=== PATIENT | male | born 1990 | race Hispanic/Latino ===

== ENCOUNTER 2017-09-28 00:43 | Emergency (ER) | payer BC, MEDICAID ==
[2017-09-28 00:43] VITALS: BMI 32.1
[2017-09-28 01:56] VITALS: RESP 18; TEMP 98.2
[2017-09-28] MEDS ORDERED: Sodium Chloride 0.9% 1,000 ML IV STA (02:00)
--- NOTE | 2017-09-28 02:07 | ED PDOC ---
Arrival/HPI - General Chief Complaint: Male Genitourinary Time Seen by Provider: 09/28/17 01:47 Historian: Patient - History of Present Illness Narrative History of Present Illness (Text): 09/28/17 02:06 A 27 year old male, who denies any past medical history, presents to the emergency department complaining of right flank pain and unable to urinate. Patient notes he feels like he has to pee, unable to urinate. Patient reports symptoms began about three hours ago. Reports he has been tolerating liquids. Denies having these symptoms in the past. Patient denies any other complaints at this time. Time/Duration: 1-3 hours Symptom Onset: Sudden Symptom Course: Unchanged Activities at Onset: Rest Context: Home Past Medical History - Provider Review Nursing Documentation Reviewed: Yes - Tetanus Immunization Tetanus Immunization: Unknown - Past Medical History Past Medical History: No Previous - Cardiac Hx Cardiac Disorders: No - HEENT Hx Deafness: Yes (partial) - Psychiatric Hx Substance Use: No - Suicidal Assessment Feels Threatened In Home Enviroment: No Family/Social History - Physician Review Nursing Documentation Reviewed: Yes Family/Social History: No Known Family HX Smoking Status: Current Some Days Smoker Hx Alcohol Use: No Hx Substance Use: No Allergies/Home Meds Allergies/Adverse Reactions: Allergies Penicillins Allergy (Verified 09/28/17 01:50) RASH Review of Systems - Physician Review All systems were reviewed & negative as marked: Yes - Review of Systems Constitutional: absent: Fevers Genitourinary Male: Urinary Output Changes Musculoskeletal: Other (right flank pain) Physical Exam Vital Signs Reviewed: Yes Vital Signs Temp Pulse Resp BP Pulse Ox 09/28/17 01:52 98.2 F 78 18 155/90 H 100 Temperature: Afebrile Blood Pressure: Hypertensive Pulse: Regular Respiratory Rate: Normal Appearance: Positive for: Well-Appearing, Non-Toxic, Comfortable Pain Distress: None Mental Status: Positive for: Alert and Oriented X 3 - Systems Exam Head: Present: Atraumatic, Normocephalic Pupils: Present: PERRL Extroacular Muscles: Present: EOMI Conjunctiva: Present: Normal Mouth: Present: Moist Mucous Membranes Neck: Present: Normal Range of Motion Respiratory/Chest: Present: Clear to Auscultation, Good Air Exchange. No: Respiratory Distress, Accessory Muscle Use Cardiovascular: Present: Regular Rate and Rhythm, Normal S1, S2. No: Murmurs Abdomen: No: Tenderness, Distention, Peritoneal Signs Back: Present: CVA Tenderness (mild right) Upper Extremity: Present: Normal Inspection. No: Cyanosis, Edema Lower Extremity: Present: Normal Inspection. No: Edema Neurological: Present: GCS=15, CN II-XII Intact, Speech Normal Skin: Present: Warm, Dry, Normal Color. No: Rashes Psychiatric: Present: Alert, Oriented x 3, Normal Insight, Normal Concentration Medical Decision Making ED Course and Treatment: 09/28/17 02:04 Impression: A 27 year old male with right flank pain and unable to urinate. Plan: -- CT abd/pelvis -- labs -- Urinalysis -- IV fluids, Toradol, Zofran -- Reassess and disposition Progress Notes: CT Abdomen and Pelvis Without Intravenous Contrast FINDINGS: Lung bases: Unremarkable. No mass. No consolidation. ABDOMEN: Liver: The liver is within normal limits for this noncontrast study. Gallbladder and bile ducts: Unremarkable. No calcified stones. No ductal dilation. Pancreas: Unremarkable. No ductal dilation. Spleen: Unremarkable. No splenomegaly. Adrenals: Unremarkable. No mass. Kidneys and ureters: There is mild right hydronephrosis and hydroureter secondary to a 2 mm stone in the distal ureter. There is mild inflammatory right perinephric stranding. The left kidney is normal. Stomach and bowel: Unremarkable. No obstruction. No mucosal thickening.There is no wall thickening or pericolonic stranding to suggest colitis. PELVIS: Appendix: A normal appendix is identified. Bladder: Unremarkable. No stones. Reproductive: Unremarkable as visualized. ABDOMEN and PELVIS: Intraperitoneal space: Unremarkable. No free air. No significant fluid collection. Bones/joints: No acute fracture. No dislocation. Soft tissues: Unremarkable. Vasculature: Unremarkable. No abdominal aortic aneurysm. Lymph nodes: Unremarkable. No enlarged lymph nodes. IMPRESSION: Mild right hydroureteronephrosis secondary to 2 mm stone in the distal ureter. Dictated and Authenticated by: Alice Cote MD 09/28/2017 3:28 AM Eastern Time ([place] & [place]) 09/28/17 04:55 Patient with relief of symptoms in emergency department. Patient feels better and is in no acute distress. I have discussed the results and plan with the patient, who expresses understanding. Patient in agreement with plan to be discharged home. Patient is stable for discharge. Patient was instructed to follow up with physician or return if symptoms worsen or new concerning symptoms arise. - Lab Interpretations Lab Results: 09/28/17 02:20 09/28/17 02:20 Lab Results 09/28/17 02:40: Urine Color Yellow, Urine Appearance Clear, Urine pH 6.0, Ur Specific Henning >= 1.030, Urine Protein 30 H, Urine Glucose (UA) Negative, Urine Ketones Negative, Urine Blood Large H, Urine Nitrate Negative, Urine Bilirubin Small H, Urine Urobilinogen 0.2, Ur Leukocyte Esterase Negative, Urine RBC 10 - 15, Urine WBC 0 - 2, Ur Epithelial Cells 0 - 2, Urine Bacteria Rare, Urine Other Mucus 09/28/17 02:20: WBC 12.1 H, RBC 5.13, Hgb 15.8, Hct 44.3, MCV 86.4, MCH 30.8, MCHC 35.7, RDW 12.8, Plt Count 230, MPV 11.2 H 09/28/17 02:20: Sodium 141, Potassium 3.6, Chloride 103, Carbon Dioxide 26, Anion Gap 16, BUN 13, Creatinine 0.9, Est GFR ( Amer) > 60, Est GFR (Non- Af Amer) > 60, Random Glucose 141 H, Calcium 9.7, Total Bilirubin 1.0, AST 26, ALT 24, Alkaline Phosphatase 61, Total Protein 7.9, Albumin 4.7, Globulin 3.2, Albumin/Globulin Ratio 1.4 I have reviewed the lab results: Yes - RAD Interpretation Radiology Orders: 09/28/17 02:01 ABD & PELVIS W/O PO OR IV CONT [CT] Stat - Medication Orders Current Medication Orders: Discontinued Medications Sodium Chloride (Sodium Chloride 0.9%) 1,000 mls @ 999 mls/hr IV .Q1H1M STA Stop: 09/28/17 03:00 Last Admin: 09/28/17 02:27 Dose: 999 mls/hr eMAR Start Stop Document 09/28/17 02:27 SS (Rec: 09/28/17 02:28 SS [id number]) Intravenous Solution Start Date 09/28/17 Start Time 02:27 End Date 09/28/17 End time 03:27 Total Infusion Time 60 Ketorolac Tromethamine (Toradol) 30 mg IVP ONCE ONE Stop: 09/28/17 02:01 Last Admin: 09/28/17 02:27 Dose: 30 mg MAR Pain Assessment Document 09/28/17 02:27 SS (Rec: 09/28/17 02:27 SS DEON) Pain Reassessment Is this a pain reassessment? No Sleep Is patient sleeping during reassessment? No Presence of Pain Presence of Pain Yes Location Left, Right or Bilateral Right IVP Administration Document 09/28/17 02:27 SS (Rec: 09/28/17 02:27 SS [id number]) Charges for Administration # of IVP Administrations 1 Ondansetron HCl (Zofran Inj) 4 mg IVP ONCE ONE Stop: 09/28/17 02:01 Last Admin: 09/28/17 02:27 Dose: 4 mg IVP Administration Document 09/28/17 02:27 SS (Rec: 09/28/17 02:27 SS [id number]) Charges for Administration # of IVP Administrations 1 - Scribe Statement The provider has reviewed the documentation as recorded by the Ramiro Gonzalez Provider Scribe Attestation: All medical record entries made by the Linnibshannon were at my direction and personally dictated by me. I have reviewed the chart and agree that the record accurately reflects my personal performance of the history, physical exam, medical decision making, and the department course for this patient. I have also personally directed, reviewed, and agree with the discharge instructions and disposition. Disposition/Present on Arrival - Present on Arrival Any Indicators Present on Arrival: No History of DVT/PE: No History of Uncontrolled Diabetes: No Urinary Catheter: No History of Decub. Ulcer: No History Surgical Site Infection Following: None - Disposition Have Diagnosis and Disposition been Completed?: Yes Diagnosis: Nephrolithiasis Disposition: HOME/ ROUTINE Disposition Time: 04:50 Patient Plan: Discharge Patient Problems: Current Active Problems Problem Status Onset Nephrolithiasis Acute Condition: GOOD Discharge Instructions (ExitCare): Kidney Stones (DC), Renal Colic (DC) Additional Instructions: Drink plenty of liquids/take meds as prescribed/follow up with your doctor this week/any recurrent severe pains return to the emergency room Prescriptions: traMADol/Acetaminophen [Ultracet 325 MG-37.5 MG] 1 tab PO Q6 PRN #16 tab PRN Reason: Pain Referrals: Javier Rodriguez MD [Staff Provider] - Follow up with primary Forms: [employer]ir ([place]), WORK NOTE
[2017-09-28 02:46] LABS: URINE BILIRUBIN SMALL (NEGATIVE); URINE BLOOD LARGE (NEGATIVE); URINE GLUCOSE (UA) NEGATIVE (NEGATIVE); URINE LEUKOCYTE ESTERASE NEGATIVE Leu/uL (NEGATIVE); URINE PROTEIN 30 mg/dL (<30 mg/dL); URINE UROBILINOGEN 0.2 E.U./dL (<1 E.U./dL)
[2017-09-28 02:46] LABS: ALB/GLOB RATIO 1.4 (1.1-1.8); ALBUMIN 4.7 g/dL (3.0-4.8); ALT/SGPT 24 U/L (7-56); AST/SGOT 26 U/L (17-59); BLOOD UREA NITROGEN 13 mg/dL (7-21); CALCIUM 9.7 mg/dL (8.4-10.5); GFR AFRICAN-AMERICAN > 60; GFR NON-AFRICAN AMERICAN > 60
[2017-09-28 02:55] LABS: HEMOGLOBIN 15.8 g/dL (14.0-18.0); MEAN CELL VOLUME 86.4 fl (80.0-105.0); MEAN CORPUSCULAR HEMOGLOBIN 30.8 pg (25.0-35.0); MEAN CORPUSCULAR HGB CONC 35.7 g/dl (31.0-37.0); MEAN PLATELET VOLUME 11.2 fl (7.0-11.0); RBC 5.13 10^6/uL (3.5-6.1); RED CELL DISTRIBUTION WIDTH 12.8 % (11.5-14.5); WHITE BLOOD COUNT 12.1 10^3/ul (4.5-11.0)
[2017-09-28 03:02] LABS: URINE APPEARANCE CLEAR (CLEAR); URINE COLOR YELLOW (YELLOW)
[2017-09-28 03:05] LABS: URINE BACTERIA RARE (NEG); URINE EPITHELIAL CELLS 0 - 2 /hpf (0-5); URINE WBC 0 - 2 /hpf (0-6)
--- NOTE | 2017-09-28 03:29 | CT ---
EXAM: CT Abdomen and Pelvis Without Intravenous Contrast CLINICAL HISTORY: 27 years old, male; Pain; Abdominal pain; Flank; Right; Additional info: Right flank pain TECHNIQUE: Axial computed tomography images of the abdomen and pelvis without intravenous contrast. All CT scans at this facility use one or more dose reduction techniques, viz.: automated exposure control; ma/kV adjustment per patient size (including targeted exams where dose is matched to indication; i.e. head); or iterative reconstruction technique. Coronal and sagittal reformatted images were created and reviewed. COMPARISON: No relevant prior studies available. FINDINGS: Lung bases: Unremarkable. No mass. No consolidation. ABDOMEN: Liver: The liver is within normal limits for this noncontrast study. Gallbladder and bile ducts: Unremarkable. No calcified stones. No ductal dilation. Pancreas: Unremarkable. No ductal dilation. Spleen: Unremarkable. No splenomegaly. Adrenals: Unremarkable. No mass. Kidneys and ureters: There is mild right hydronephrosis and hydroureter secondary to a 2 mm stone in the distal ureter. There is mild inflammatory right perinephric stranding. The left kidney is normal. Stomach and bowel: Unremarkable. No obstruction. No mucosal thickening.There is no wall thickening or pericolonic stranding to suggest colitis. PELVIS: Appendix: A normal appendix is identified. Bladder: Unremarkable. No stones. Reproductive: Unremarkable as visualized. ABDOMEN and PELVIS: Intraperitoneal space: Unremarkable. No free air. No significant fluid collection. Bones/joints: No acute fracture. No dislocation. Soft tissues: Unremarkable. Vasculature: Unremarkable. No abdominal aortic aneurysm. Lymph nodes: Unremarkable. No enlarged lymph nodes. IMPRESSION: Mild right hydroureteronephrosis secondary to 2 mm stone in the distal ureter.
[2017-09-28 06:13] VITALS: BP 127/85; PULSE 82; O2SAT 98
== END 2017-09-28 05:10 | disposition home or self-care (01) ==
LOC: ED 00:43
DX: N20.0 Calculus of kidney (principal)
CPT/HCPCS: 74176; 80053; 81001; 85027; 96361; 96374; 96375; 99283; J1885; J2405; J7040